=== PATIENT | male | born 1940 | race African-American/Black ===

== ENCOUNTER 2024-01-20 12:53 | Outpatient (CLI) | payer MEDICARE, SELFPAY ==
--- NOTE | 2024-01-20 13:03 | CA_ITS ---
FINAL REPORT CLINICAL HISTORY: HTN, HLD, 81 mg ASA daily. Patient denies trauma, edema and sore bilateral lower extremities x couple of months per patient. COMPARISON: None FINDINGS: DUPLEX VENOUS SONOGRAPHY OF THE BILATERAL LOWER EXTREMITIES Multiple transverse and longitudinal scans were performed of the femoropopliteal deep venous systems, with augmentation and compression maneuvers. Normal phasic flow was noted in the visualized deep venous systems. No intraluminal increased echogenicity is noted to suggest thrombus. There is normal compression and augmentation of the venous structures. No abnormal venous collaterals are seen. A right popliteal cyst is noted. IMPRESSION: No evidence of deep venous thrombosis of the bilateral lower extremities. Reviewed, Interpreted and Dictated by Angelita Snow MD Transcribed by Victorina Sarmiento Authenticated and [facility]
== END 2024-01-20 23:59 | disposition home or self-care (01) ==
LOC: RT 12:54
PROVIDERS: Visit Provider Internal Medicine Pulmonary Disease
DX: M79.89 Other specified soft tissue disorders (principal)
CPT/HCPCS: 93970